=== PATIENT | female | born 1930 | race Asian ===

== ENCOUNTER → 2016-07-22 | Outpatient (CLI) | payer MEDICARE, BC ==
[2016-07-22 10:02] LABS: CH 29.9; CHCM 33.1; HCT 36.5 % (34.0-46.0); HDW 2.27; HGB 12.1 gm/dL (11.4-16.0); MCHC 33.1 g/dL (31.0-37.0); MCV 90.7 fL (80.0-100.0); Mean Platelet Volume 7.5; RBC 4.02 m/uL (3.80-5.40); RDW 11.9 % (11.5-15.5); WBC 7.3 k/uL (3.8-10.6)
[2016-07-22 10:11] LABS: Appearance,Urine Cloudy (Clear); Bacteria,Urine Many /hpf; Bilirubin,Urine Negative (Negative); Glucose,Urine (UA) Negative (Negative); Ketones,Urine Negative (Negative); Leukocyte Esterase,Urine Large (Negative); Mucus,Urine Rare /hpf; Nitrite,Urine Negative (Negative); PH, Urine 6.5 (5.0-8.0); Particle Count 5189; Protein,Urine Negative (Negative); Specific Gravity,Urine 1.011 (1.001-1.035); UA Billing (MACRO vs. MICRO) MICRO; Urobilinogen,Urine <2.0 mg/dL (<2.0); WBC,Urine 47 /hpf (0-5)
[2016-07-22 10:20] LABS: ALT 25 U/L (9-52); AST 26 U/L (14-36); Alkaline Phosphatase 66 U/L (38-126); Anion Gap 9 mmol/L; Blood Urea Nitrogen 19 mg/dL (7-17); Carbon Dioxide 26 mmol/L (22-30); Chloride 106 mmol/L (98-107); Cholesterol 213 mg/dL (<200); Glucose 108 mg/dL (74-99); HDL Cholesterol 63 mg/dL (40-60); Non-African American GFR(MDRD) >60 (>60 ml/min/1.73 sqM); Potassium 4.5 mmol/L (3.5-5.1); Sodium 141 mmol/L (137-145); Total Bilirubin 0.7 mg/dL (0.2-1.3); Total Protein 7.4 g/dL (6.3-8.2); Triglycerides 136 mg/dL (<150)
== END | disposition home or self-care (01) ==
LOC: LABWHC1 09:24
PROVIDERS: ATTEND Internal Medicine
DX: E78.5 Hyperlipidemia, unspecified (principal); I10 Essential (primary) hypertension; E03.9 Hypothyroidism, unspecified
CPT/HCPCS: 36415; 80053; 80061; 81001; 84443; 85027

== ENCOUNTER 2016-09-03 11:58 | Day surgery (SDC) | payer MEDICARE, BC ==
[~2016-09-03 11:58] MED LIST: ALPRAZolam 0.25 MG TAB PO PRN; ALPRAZolam 0.5 MG TAB PO PRN; ASPIRIN 325 MG TAB PO STA; ATORVASTATIN 80 MG TAB PO STA; NITROGLYCERIN SL TABS 0.4 MG TAB SUBLINGUAL PRN; SODIUM CHLORIDE 0.9% 1,000 ML in EMPTY BAG 1 BAG IV ONE
[2016-09-03] MEDS ORDERED: HEPARIN SODIUM 1,000 UN/ML (10ML VL) ONE ×2 (12:33→13:29)
[2016-09-03] MEDS ORDERED: LIDOCAINE 2% INJ 20 MG/ML (20 ML MDV) ONE (12:33)
[2016-09-03 13:02] LABS: Basophils # (A) 0.1 k/uL (0-0.2); Basophils % (A) 1 %; CH 29.5; Eosinophils # (A) 0.1 k/uL (0-0.7); Eosinophils % (A) 2 %; HCT 36.2 % (34.0-46.0); HDW 2.14; HGB 12.2 gm/dL (11.4-16.0); Luc # (Auto) 0.24; Luc % (Auto) 3; Lymphocytes # (A) 2.9 k/uL (1.0-4.8); Lymphocytes % (A) 40 %; MCH 30.3 pg (25.0-35.0); MCHC 33.7 g/dL (31.0-37.0); MCV 89.8 fL (80.0-100.0); Mean Platelet Volume 7.5; Monocytes # (A) 0.5 k/uL (0-1.0); Monocytes % (A) 7 %; Neutrophils # (A) 3.4 k/uL (1.3-7.7); Neutrophils % (A) 47 %; RBC 4.03 m/uL (3.80-5.40); RDW 12.1 % (11.5-15.5); WBC 7.2 k/uL (3.8-10.6); WBC (Perox) 7.53
[2016-09-03] MEDS ORDERED: fentaNYL (PF) 50 MCG/ML 2 ML AMP ONE (13:04)
[2016-09-03] MEDS ORDERED: diphenhydrAMINE 50 MG/ML 1 ML VIAL ONE (13:04)
[2016-09-03 13:06] LABS: Anion Gap 9 mmol/L; Blood Urea Nitrogen 22 mg/dL (7-17); Calcium 9.9 mg/dL (8.4-10.2); Carbon Dioxide 26 mmol/L (22-30); Chloride 105 mmol/L (98-107); Glucose 96 mg/dL (74-99); Non-African American GFR(MDRD) >60 (>60 ml/min/1.73 sqM); Potassium 4.3 mmol/L (3.5-5.1); Sodium 140 mmol/L (137-145)
[2016-09-03] MEDS ORDERED: fentaNYL (PF) 50 MCG/ML 2 ML AMP IVP ONE ×2 (13:06→13:16)
[2016-09-03] MEDS ORDERED: diphenhydrAMINE 50 MG/ML 1 ML VIAL IVP ONE ×2 (13:07→13:16)
[2016-09-03] MEDS ORDERED: LIDOCAINE 2% INJ 20 MG/ML SQ ONE ×2 (13:17)
[2016-09-03] MEDS ORDERED: HEPARIN SODIUM 1,000 UN/ML (10ML VL) IV ONE (13:30)
[2016-09-03] MEDS ORDERED: NITROGLYCERIN 1000MCG/10ML SYRINGE INTRACORON ONE (13:31)
[2016-09-03] MEDS ORDERED: CLOPIDOGREL 75 MG TAB ONE (13:52)
[2016-09-03] MEDS ORDERED: BIVALIRUDIN BOLUS 250 MG/50 ML IV ONE (13:52)
[2016-09-03] MEDS ORDERED: BIVALIRUDIN 250 MG in SODIUM CHLORIDE 0.9% 40 ML IV ONE (13:53)
[2016-09-03] MEDS ORDERED: CLOPIDOGREL 75 MG TAB PO ONE (13:55)
[2016-09-03] MEDS ORDERED: IOHEXOL 350 MG/ML 125ML BOTTLE INJ ONE (13:58)
[2016-09-03] MEDS ORDERED: MAG HYDROX/AL HYDROX/SIMETH 30 ML CUP PO PRN (14:14)
[2016-09-03] MEDS ORDERED: RX INFO: IV CONTRAST WAS GIVEN 1 EACH MISC MISCELLANE PRN (14:14)
[2016-09-03] MEDS ORDERED: ATROPINE SULFATE 0.1 MG/ML 10ML SYRINGE IV PRN (14:14)
[2016-09-03] MEDS ORDERED: NITROGLYCERIN SL TABS 0.4 MG TAB SUBLINGUAL PRN (14:14)
[2016-09-03] MEDS ORDERED: SODIUM CHLORIDE 0.9% 1,000 ML IV SCH (14:15)
[2016-09-03] MEDS ORDERED: SPIRONOLACTONE 25 MG TAB PO SCH (16:00)
[2016-09-03] MEDS: CARVEDILOL 12.5 MG TAB PO SCH (17:34)
[2016-09-03 18:46] VITALS: TEMP 96.8
[2016-09-03 20:53] VITALS: BMI 24.3
[2016-09-03] MEDS ORDERED: ZOLPIDEM 5 MG TAB PO PRN (21:00)
[2016-09-03] MEDS ORDERED: LOSARTAN 50 MG TAB PO SCH (21:00)
[2016-09-03] MEDS ORDERED: predniSONE 1 MG TAB PO SCH (21:00)
[2016-09-03] MEDS ORDERED: ATORVASTATIN 20 MG TAB PO SCH (21:00)
[2016-09-03] MEDS ORDERED: NON-FORMULARY DRUG (Fish Oil/Dha/Epa [Fish Oil 1,200 Mg Fish Oil] 1 EACH) PO SCH (21:00)
[2016-09-04] MEDS: CARVEDILOL 12.5 MG TAB PO SCH (06:32)
[2016-09-04 06:47] LABS: Anion Gap 7 mmol/L; Blood Urea Nitrogen 18 mg/dL (7-17); Calcium 9.4 mg/dL (8.4-10.2); Carbon Dioxide 23 mmol/L (22-30); Chloride 107 mmol/L (98-107); Glucose 114 mg/dL (74-99); Non-African American GFR(MDRD) >60 (>60 ml/min/1.73 sqM); Potassium 4.5 mmol/L (3.5-5.1); Sodium 137 mmol/L (137-145)
[2016-09-04 08:46] VITALS: BP 113/56; PULSE 77; RESP 16
[2016-09-04] MEDS ORDERED: DICYCLOMINE 10 MG CAP PO SCH (09:00)
[2016-09-04] MEDS ORDERED: amLODIPine 5 MG TAB PO SCH (09:00)
[2016-09-04] MEDS ORDERED: ASPIRIN 81 MG CHEW PO SCH (09:00)
[2016-09-04] MEDS ORDERED: CLOPIDOGREL 75 MG TAB PO SCH (09:00)
[2016-09-04] MEDS ORDERED: CHLORTHALIDONE 25 MG TAB PO SCH (09:00)
--- NOTE | 2016-09-04 09:20 | CC ---
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 In view of that, recommendation was made regarding cardiac catheterization. The procedure as well as risks and complications were discussed with the patient who is in full understanding and agreement. The patient was brought to the cardiac cath rn in a fasting semi-sedated state. After receiving Fentanyl and Benadryl, achieving moderate conscious sedated state, she was prepped and draped in the conventional fashion, using Xylocaine anesthesia and Seldinger technique, a 6 [place] introducer was introduced into the right radial artery . Selective right and left coronary artery was performed using 6 [place] 4 Bend, right and left Ana catheter. Multiple views of the right coronary artery including hemiaxial views were obtained. Following that, a 5 [place] tight pigtail catheter was introduced into the left ventricle and a 30 degree NORRIS view of the left ventricle was obtained. Following that, catheter was removed. Images were reviewed. FINDINGS: LEFT MAIN: This is a large size vessel bifurcating into left circumflex, left anterior descending artery. Left main coronary artery is without any obstructive disease. LEFT ANTERIOR DESCENDING ARTERY: This is a large size vessel reaching towards the apex with a wrap around the apex segment giving rise to two diagonal branch. The left anterior descending artery as well as branches have no evidence of obstructive coronary artery disease. LEFT CIRCUMFLEX: This is a nondominant vessel, large vessel in caliber, giving rise to two obtuse marginal branch. The left circumflex as well as branches have no evidence of obstructive coronary artery disease. RIGHT CORONARY ARTERY: This is a nondominant large size vessel bifurcating distally into PDA and posterolateral segment and branches. In the mid right coronary artery after the takeoff of the acute marginal branch, there is an area of stenosis of 50 to 60%. The rest of the vessel has no high grade stenosis. LEFT VENTRICULOGRAM: Left ventriculogram was performed in 30 degree NORRIS view and revealed normal left ventricular size and systolic function. Ejection fraction 60%. There was no significant mitral regurgitation. HEMODYNAMICS: There was no gradient across the aortic valve. The left ventricular end diastolic pressure was 18 mmHg. CONCLUSION: 1. Borderline significant lesion in the mid right coronary artery. 2. Normal left ventricular size and systolic function. RECOMMENDATIONS: In view of findings and anatomy, I have recommended proceeding with the measurement of the FIR/FFR in the right coronary artery. Depending on that, further recommendations will be made. Those findings and recommendations were discussed with the patient and she is in full understanding and agreement. ZORAIDA
--- NOTE | 2016-09-04 10:39 | PTCA ---
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 Underwent cardiac catheterization and was found to have borderline significant lesion in the mid right coronary artery. In view of that, recommendations were made regarding measurement of the IFR/FFR and depending on that angioplasty and stenting if indicated. Those findings and recommendations were discussed with the patient and she is in full understanding and agreement. PROCEDURE: Using a 6-Yi FR4 guiding catheter and after cannulating the right coronary ostium, the Doppler flow wire was introduced in the right coronary artery, positioned distally and then the IFR was measured at 0.77. At that point, a 2.75 x 50 mm Xience Alpine stent was deployed, post dilated at 14 atmospheres. After the last inflation, after appropriate wait, the balloon and guide wire was withdrawn back in the guiding catheter. Images were obtained, repeated. Those images reveal stable successful stenting. At that point, the guiding catheter, the balloon and the guide wire were removed. The sheath was removed. Hemostasis was obtained with deployment of an Angio-Seal. There was no immediate complication. The patient was returned to her room in stable condition. Of note, patient received 5000 units of intravenous heparin initially and Angiomax as well as oral loading dose of clopidogrel. RESULTS: Successful stenting of the mid right coronary artery with reduction in stenosis from 60% and a positive IFR to 0%. RECOMMENDATIONS: The patient will be continued on aspirin, Plavix, angiotensin receptor juan and statin. The importance of dual antiplatelet treatment was discussed with the patient and her family and is in full understanding and agreement. DURATION OF THE PROCEDURE: 44 minutes. ZORAIDA
--- NOTE | 2016-09-04 10:45 | MISC ---
September 03, 2016 Endy Thakkar MD Re: Dr. Fely Samuel Dear Dr. 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 In brief, she underwent successful stenting of the mid right coronary artery after measuring her IFR. I am hopeful that this procedure will stabilize her status. Thank you again for allowing me the opportunity to participate in her care. Please feel free to call for any questions. Sincerely yours, Mike CONWAY
[2016-09-04] MEDS ORDERED: MULTIVITAMINS, THERA 1 EACH TAB PO SCH (12:00)
--- NOTE | 2016-09-04 12:26 | PN ---
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 She is doing well this morning. She is denying any symptoms of chest pain. Her breathing has been stable. She denies any dizziness, palpitation. She denies any nausea. She continues to be at this time on aspirin 81 mg daily, amlodipine 5 mg daily, Lipitor 20 mg daily, Coreg 25 mg twice a day, chlorthalidone 25 mg twice a week , Plavix 75 mg daily, losartan 100 mg daily, prednisone 2 mg daily, spironolactone 3 times a week. PHYSICAL EXAMINATION: Blood pressure 113/50 with a heart rate in 70s, lungs clear. HEART: Regular rate and rhythm, S1, S2, no S3, no rub. ABDOMEN: Soft, nontender. EXTREMITIES: No edema. Right groin hematoma. Lab data revealed BUN and creatinine of 18 and 0.8, potassium 4.5. EKG revealed no acute changes. IMPRESSION: 1. Status post stenting of the right coronary artery. 2. Hypertension. 3. Hyperlipidemia. 4. History of G6PD deficiency. RECOMMENDATION: Patient will be discharged home today and followup as an outpatient. ZORAIDA
== END 2016-09-04 10:03 | disposition home or self-care (01) ==
LOC: CATHCVL 11:58 → 6SEL 13:57 → CATHCVL 09-04 10:03
PROVIDERS: ATTEND Internal Medicine Interventional Cardiology
DX: I25.10 Atherosclerotic heart disease of native coronary artery without angina pectoris (principal); I10 Essential (primary) hypertension; E78.2 Mixed hyperlipidemia; R60.0 Localized edema; D55.0 Anemia due to glucose-6-phosphate dehydrogenase [G6PD] deficiency; Z82.49 Family history of ischemic heart disease and other diseases of the circulatory system; Z79.899 Other long term (current) drug therapy; Z88.6 Allergy status to analgesic agent
CPT/HCPCS: 99152; 99153 ×2; 93571; 93458; 80048 ×2; 85025; C9600; C1760; C1887; C1894; C1874; C1769; J2001; J1200; J3010; J1644; J0583; J7512; Q9967

== ENCOUNTER → 2016-09-30 | Outpatient (CLI) | payer MEDICARE, BC ==
[2016-09-30 09:26] LABS: ALT 36 U/L (9-52); AST 21 U/L (14-36); Alkaline Phosphatase 68 U/L (38-126); Anion Gap 9 mmol/L; Blood Urea Nitrogen 18 mg/dL (7-17); Calcium 9.5 mg/dL (8.4-10.2); Carbon Dioxide 26 mmol/L (22-30); Chloride 109 mmol/L (98-107); Cholesterol 125 mg/dL (<200); Glucose 115 mg/dL (74-99); HDL Cholesterol 56 mg/dL (40-60); Non-African American GFR(MDRD) >60 (>60 ml/min/1.73 sqM); Potassium 4.7 mmol/L (3.5-5.1); Sodium 144 mmol/L (137-145); Total Bilirubin 0.4 mg/dL (0.2-1.3); Total Protein 6.5 g/dL (6.3-8.2)
== END | disposition home or self-care (01) ==
LOC: LABWHC1 08:34
PROVIDERS: ATTEND Internal Medicine Interventional Cardiology
DX: E78.2 Mixed hyperlipidemia (principal)
CPT/HCPCS: 36415; 80053; 80061

== ENCOUNTER → 2017-02-12 | Outpatient (CLI) | payer MEDICARE, BC ==
[2017-02-12 10:16] LABS: Basophils # (A) 0.1 k/uL (0-0.2); Basophils % (A) 1 %; CH 29.5; Eosinophils # (A) 0.2 k/uL (0-0.7); Eosinophils % (A) 3 %; HCT 37.9 % (34.0-46.0); HDW 2.28; HGB 12.1 gm/dL (11.4-16.0); Luc % (Auto) 3; Lymphocytes # (A) 1.9 k/uL (1.0-4.8); Lymphocytes % (A) 31 %; MCH 28.6 pg (25.0-35.0); MCHC 31.8 g/dL (31.0-37.0); MCV 89.7 fL (80.0-100.0); Mean Platelet Volume 7.4; Monocytes # (A) 0.7 k/uL (0-1.0); Monocytes % (A) 11 %; Neutrophils # (A) 3.1 k/uL (1.3-7.7); Neutrophils % (A) 51 %; RBC 4.22 m/uL (3.80-5.40); RDW 11.8 % (11.5-15.5); WBC 6.1 k/uL (3.8-10.6); WBC (Perox) 6.17
[2017-02-12 10:52] LABS: ALT 39 U/L (9-52); AST 24 U/L (14-36); Alkaline Phosphatase 76 U/L (38-126); Anion Gap 7 mmol/L; Blood Urea Nitrogen 23 mg/dL (7-17); C Reactive Protein 9.1 mg/L (<10.0); Calcium 10.5 mg/dL (8.4-10.2); Carbon Dioxide 30 mmol/L (22-30); Chloride 103 mmol/L (98-107); Glucose 128 mg/dL (74-99); Non-African American GFR(MDRD) 53 (>60 ml/min/1.73 sqM); Potassium 4.6 mmol/L (3.5-5.1); Sodium 140 mmol/L (137-145); Total Bilirubin 0.6 mg/dL (0.2-1.3); Total Protein 6.5 g/dL (6.3-8.2)
[2017-02-12 12:03] LABS: Erythrocyte Sedimentation Rate 17 mm/hr (0-20)
[2017-02-12 15:57] LABS: Rheumatoid Factor 8 IU/mL (0-15)
[2017-02-12 18:20] LABS: Cyclic Citrull Pep IgG Unit <0.5 U/mL; Cyclic Citrullinated Pep IgG NEGATIVE (NEGATIVE)
== END | disposition home or self-care (01) ==
LOC: LABWHC1 09:09
PROVIDERS: ATTEND Internal Medicine
DX: M06.09 Rheumatoid arthritis without rheumatoid factor, multiple sites (principal)
CPT/HCPCS: 36415; 80053; 85025; 85652; 86140; 86200; 86431

== ENCOUNTER → 2017-06-01 | Outpatient (CLI) | payer MEDICARE, BC ==
--- NOTE | 2017-06-02 07:46 | MM ---
Reason for exam: additional evaluation requested from prior study. Last mammogram was performed 1 year and 6 months ago. History: Patient is postmenopausal and had first child at age 34. Family history of breast cancer in sister at age 65 and breast cancer in sister at age 70. Took estrogen for 12 years. Physical Findings: Nurse did not find any significant physical abnormalities on exam. MG 3D Diag Mammo W/Cad SANCHEZ Bilateral CC and MLO view(s) were taken. Prior study comparison: December 05, 2015, bilateral MG 3d diag mammo w/cad SANCHEZ. August 11, 2014, bilateral MG diagnostic mammo w CAD SANCHEZ. There are scattered fibroglandular densities. Stable nodular asymmetry subareolar right breast as compared to 2016. No significant new findings when compared with previous films. These results were verbally communicated with the patient and result sheet given to the patient on 06/01/17. ASSESSMENT: Benign, BI-RAD 2 RECOMMENDATION: Routine screening mammogram of both breasts in 1 year.
== END | disposition home or self-care (01) ==
LOC: RADMAMWWP 15:09
PROVIDERS: ATTEND Internal Medicine
DX: R92.8 Other abnormal and inconclusive findings on diagnostic imaging of breast (principal); Z78.0 Asymptomatic menopausal state
CPT/HCPCS: 77066; G0279

== ENCOUNTER → 2017-09-28 | Outpatient (CLI) | payer MEDICARE, BC ==
[2017-09-28 10:41] LABS: HCT 35.7 % (34.0-46.0); HGB 11.6 gm/dL (11.4-16.0); MCH 29.1 pg (25.0-35.0); MCHC 32.5 g/dL (31.0-37.0); MCV 89.5 fL (80.0-100.0); Mean Platelet Volume 7.9; Platelet Count 263 k/uL (150-450); RBC 3.98 m/uL (3.80-5.40); RDW 12.8 % (11.5-15.5); WBC 7.4 k/uL (3.8-10.6)
[2017-09-28 11:01] LABS: Albumin 4.3 g/dL (3.5-5.0); Calcium 10.1 mg/dL (8.4-10.2); Potassium 4.9 mmol/L (3.5-5.1); Total Bilirubin 0.7 mg/dL (0.2-1.3); Total Protein 6.7 g/dL (6.3-8.2)
[2017-09-28 21:02] LABS: Hemoglobin A1C 6.2 % (4.0-6.0)
== END | disposition home or self-care (01) ==
LOC: LABWHC1 10:16
PROVIDERS: ATTEND Surgery Vascular Surgery
DX: I10 Essential (primary) hypertension (principal)
CPT/HCPCS: 36415; 80053; 83036; 85027

== ENCOUNTER → 2017-12-21 | Outpatient (CLI) | payer MEDICARE, BC ==
--- NOTE | 2017-12-21 16:25 | MR ---
EXAMINATION TYPE: MR lumbar spine wo con DATE OF EXAM: 12/21/2017 COMPARISON: Prior MRI lumbar spine November 12, 2014 HISTORY: Radicular pain and degenerative joint disease/lumbago per order. Extreme low back pain for o ne week going into right lower extremity per patient. TECHNIQUE: Multiplanar, multisequence imaging of the lumbar spine is performed without IV contrast. FINDINGS: Sagittal images of the lumbar spine show vertebral body heights to remain satisfactory. The re is stable grade 1 retrolisthesis of L3 on L4. Multilevel disc desiccation is redemonstrated. This space heights are fairly well-maintained. Posterior disc herniations L3-L4 and L4-L5 level are redemo nstrated on sagittal images. The conus medullaris remains normal in position and signal ending superi or L1 level. Mild multilevel anterior spurring is redemonstrated. Heterogeneous Modic type II endplat e changes in the lower lumbar spine are redemonstrated. Axial images show the T12-L1, L1-L2, and L2-L3 levels all to remain within normal limits. Axial images at the L3-L4 level redemonstrate mild to moderate broad disc bulge with right paracentra l/foraminal disc protrusion component effacing anterior thecal sac and right lateral recess. Mild fac et arthropathy bilaterally is present at this level. Left-sided neural foramina shows mild/moderate i nferior narrowing. Right-sided neural foramina shows stable mild/moderate anterior inferior neural fo raminal narrowing encroaching on right L3 nerve sagittal image 11 not significantly changed from prio r. Axial images at the L4-L5 level show mild to moderate facet degenerative changes and ligament of flav um hypertrophy bilaterally effacing posterior lateral thecal sac. There is moderate broad disc bulge effacing anterior thecal sac. There is [id number] bilateral anterior inferior neural foraminal narrowing. Axial images at the L5-S1 level show mild to moderate facet degenerative changes bilaterally. Bilater al neural foramina are patent. Spinal canal is preserved. There are multiple round T2 hyperintense lesion is felt to reflect thin-walled cysts scattered throug hout both kidneys of varying size and shape redemonstrated. 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 No significant change from prior MRI. Persistent eccentric disc herniation right L 3-L4 level encroaches along inferior margin of the exiting right L3 nerve and the anterolateral theca l sac likely affecting central right L4 nerve.
== END | disposition home or self-care (01) ==
LOC: RADMRIMAIN 15:19
PROVIDERS: ATTEND Internal Medicine
DX: M51.26 Other intervertebral disc displacement, lumbar region (principal); M47.816 Spondylosis without myelopathy or radiculopathy, lumbar region
CPT/HCPCS: 72148

== ENCOUNTER → 2018-12-10 | Outpatient (CLI) | payer MEDICARE, BC ==
[2018-12-10 15:05] LABS: HGB 13.5 gm/dL (11.4-16.0); MCH 30.7 pg (25.0-35.0); MCHC 32.9 g/dL (31.0-37.0); MCV 93.4 fL (80.0-100.0); Mean Platelet Volume 7.8; Platelet Count 171 k/uL (150-450); RBC 4.39 m/uL (3.80-5.40); RDW 12.3 % (11.5-15.5); WBC 6.4 k/uL (3.8-10.6)
[2018-12-10 18:10] LABS: African American GFR (CKD) 66.6 (60.0-200.0); Albumin 4.5 g/dL (3.80-4.90); Albumin/Globulin Ratio 2.37 (1.60-3.17); Anion Gap 9.7 mmol/L (4.00-12.00); BUN/Creat Ratio 24.44 Ratio (12.00-20.00); Carbon Dioxide 29.3 mmol/L (21.6-31.8); Chol/HDL Ratio 2.3; Globulin 1.9 g/dL (1.6-3.3); LDL Cholesterol,Calculated 38.8 mg/dL (0.0-131.0); Potassium 4.4 mmol/L (3.5-5.5); Total Bilirubin 0.8 mg/dL (0.2-1.2); Total Protein 6.4 g/dL (6.2-8.2); VLDL Calculation 34.2 mg/dL (5.00-40.00)
[2018-12-10 19:41] LABS: Hemoglobin A1C 5.9 % (4.0-6.0)
== END | disposition home or self-care (01) ==
LOC: LABWHC1 14:10
PROVIDERS: ATTEND Internal Medicine Endocrinology, Diabetes & Metabolism
DX: E11.65 Type 2 diabetes mellitus with hyperglycemia (principal)
CPT/HCPCS: 36415; 80053; 80061; 82607; 83036; 84443; 85027